=== PATIENT | female | born 1965 | race Caucasian/White ===

== ENCOUNTER → 2020-10-28 | Outpatient (CLI) | payer MEDICARE, OTHER ==
--- NOTE | 2020-10-29 19:00 | CT ---
EXAMINATION TYPE: CT lumbar spine wo con DATE OF EXAM: 10/28/2020 5:08 PM COMPARISON: HISTORY: low back pain CT DLP: 601 mGycm Automated exposure control for dose reduction was used. Unenhanced CT of the lumbar spine was performed. Bone and soft tissue window settings are submitted as well as coronal and sagittal reconstructions. There is a 2 mm nonobstructing right renal calculus. Atherosclerotic change of the aorta. L1-L2: Normal disc space height. No disc herniation protrusion or central stenosis. No facet joint arthropathy. No evidence for foraminal encroachment. L2-L3: Normal disc space height. No disc herniation protrusion or central stenosis. No facet joint arthropathy. No evidence for foraminal encroachment. L3-L4: Normal disc space height. No disc herniation protrusion or central stenosis. No facet joint arthropathy. No evidence for foraminal encroachment. L4-L5: Circumferential disc bulging. There is hypertrophic change of the facets and ligamentum flavum . No disc herniation or canal stenosis. No foraminal encroachment. L5-S1: There is a vacuum disc with posterior spondylosis and severe degenerative disc disease. Facet arthropathy noted there is spurring posteriorly with mild left foraminal encroachment. Central disc b ulging with mild effacement of thecal sac but no definite focal herniation by noncontrast CT scan. IMPRESSION: 1. Severe degenerative disc disease with vacuum disc and facet arthropathy L5-S1. Mild left foraminal encroachment. 2. Nonobstructing 2 mm right renal calculus. 3. Circumferential disc bulging L4-L5 but no canal stenosis or foraminal encroachment. Hypertrophic c hange of the facets noted.
== END | disposition home or self-care (01) ==
LOC: RADCTMAIN 16:34
PROVIDERS: ATTEND Physical Medicine & Rehabilitation
DX: M51.36 Other intervertebral disc degeneration, lumbar region (principal); M51.26 Other intervertebral disc displacement, lumbar region; M47.817 Spondylosis without myelopathy or radiculopathy, lumbosacral region; M99.73 Connective tissue and disc stenosis of intervertebral foramina of lumbar region; N20.0 Calculus of kidney
CPT/HCPCS: 72131

== ENCOUNTER → 2021-10-26 | Outpatient (CLI) | payer MEDICARE, OTHER ==
--- NOTE | 2021-10-26 22:20 | BD ---
EXAMINATION TYPE: Axial Bone Density DATE OF EXAM: 10/26/2021 COMPARISON: NONE CLINICAL HISTORY: 56 years year old Female. ICD-10 CODE: M85.88 OTHER DISORDER OF BONE DENSITY Height: 61.25 Weight: 157.7 FRAX RISK QUESTIONS: Alcohol (3 or more units per day): NO Family History (Parent hip fracture): NO Glucocorticoids (More than 3mos): NO (History of Fracture in Adulthood: NO Secondary Osteoporosis: 1. Type 1 Diabetes: NO 2. Hyperthyroidism: NO 3. Menopause before 45: AGE 36 4. Malnutrition: NO 5. Chronic liver disease: NO Rheumatoid Arthritis: NO Current Tobacco Use: NO RISK FACTORS HISTORY OF: Hip Fracture (Right/Left): NO Spine Fracture: NO History of Wrist Fracture: NO Surgery to Spine/Hip(right/left)/Wrist (right/left): NO Family History of Osteoporosis: NO Active: NO Diet low in dairy products/other sources of calcium: YES Take estrogen and/or progesterone medications: ESTRADIOL How lon YEARS Lost more than 2 inches in height since high school: NO Frequent falls: YES Poor Health: NO Hyperparathyroidism: NO Adrenal Insufficiency: NO MEDICATIONS: Prednisone or other steroids: NO Thyroid Medications:NO Osteoporosis Medications: NO Additional Medications: ESTRADIOL, SERTRALINE, MELOXICAM, CHOLESTEROL MEDS, OMEPRAZOLE Additional History: EXAM MEASUREMENTS: Bone mineral densitometry was performed using the [employer] System. Bone mineral density as measured about the Lumbar spine is: ----- L1-L4(G/cm2): 1.121 T Score Values are as follows: ----- L1: -0.8 ----- L2: -0.4 ----- L3: -0.3 ----- L4: -0.7 ----- L1-L4: -0.5 BASELINE STUDY Bone mineral density about the R hip (g/cm2): 0.838 Bone mineral density about the L hip (g/cm2): 0.779 T Score values are as follows: -----R Neck: -1.4 -----L Neck: -1.9 -----R Total: -0.6 -----L Total: -1.0 BASELINE STUDY FRAX%s: The graph provided illustrates a 7.5% chance for a major osteoporotic fx and a 0.8% chance fo r the hips probability for fx in 10 years time. IMPRESSION: Osteopenia (T Score between -2.5 and -1). There is slightly increased risk of fracture and the patient may be considered for treatment. Re-Screen 2-5 years. NOTE: T-SCORE=SD OF THE YOUNG ADULT MEAN.
== END | disposition home or self-care (01) ==
LOC: RADBDWWP 15:45
PROVIDERS: ATTEND Obstetrics & Gynecology
DX: Z12.31 Encounter for screening mammogram for malignant neoplasm of breast (principal); M85.80 Other specified disorders of bone density and structure, unspecified site
CPT/HCPCS: 77063; 77067; 77080

== ENCOUNTER → 2022-09-17 | Outpatient (CLI) | payer MEDICARE, OTHER ==
--- NOTE | 2022-09-17 08:22 | CT ---
EXAMINATION TYPE: CT lumbar spine wo con DATE OF EXAM: 09/17/2022 COMPARISON: 10/28/2020 HISTORY: 57-year-old female G439.9 R42 R51.9 M54.50 M47.816, Low back pain, no injury. TECHNIQUE: Contiguous axial scanning of the lumbar spine without IV contrast. Coronal and sagittal re constructions performed. CT DLP: 1030 mGycm Automated exposure control for dose reduction was used. FINDINGS: 4 mm nonobstructive right renal calculus. Vertebral body heights are preserved and alignment is maintained. Moderate degenerative disc disease at L5-S1 with narrowed, desiccated, diffusely bulging disc. There appears to be a possible new left paracentral disc protrusion which may abut the traversing lef t S1 nerve root at this level. There is impression on the ventral thecal sac without significant spin al canal stenosis. Hypertrophic facet arthropathy mid to lower lumbar spine. On the left, this contributes to moderate neural foraminal stenosis at L5-S1 and mild at L3-L4 L4-L5. On the right, changes result in [id number] foraminal stenosis at L4-L5 and L5-S1. Additional levels of mild degenerative disc disease with mild posterior disc bulging. No additional l arge focal disc herniation or significant spinal canal stenosis. IMPRESSION: 1. MILD MULTILEVEL DEGENERATIVE DISC DISEASE, THOUGH, MODERATE AT L5-S1. THERE MAY BE A NEW LEFT PARA CENTRAL DISC HERNIATION AT THIS LEVEL THAT MAY ABUT THE TRAVERSING LEFT S1 NERVE ROOT. CORRELATE FOR ANY RADICULAR SYMPTOMS. 2. OTHERWISE, THERE IS MILD DISC BULGING AT MULTIPLE LEVELS WITHOUT SIGNIFICANT SPINAL CANAL STENOSIS . 3. VARIABLE [id number] NEUROFORAMINAL STENOSES OUTLINED ABOVE.
--- NOTE | 2022-09-17 08:54 | CT ---
EXAMINATION TYPE: CT brain wo con, CT facial bones wo con DATE OF EXAM: 09/17/2022 COMPARISON: None HISTORY: 57-year-old female G439.9 R42 R51.9 M54.50 M47.816, Sinus pressure and headaches. TECHNIQUE: CT of the brain without contrast. Subsequent scanning of the facial bones without contrast . Coronal and sagittal reconstructions performed. CT DLP: 1129.1 (accession [id number]), 837.2 (accession [id number]) mGycm Automated exposure control for dose reduction was used. FINDINGS: Brain: Slight asymmetric prominence to the right lateral ventricle likely congenital variation. There is pro minent streak and beam hardening artifact relating to the electronic device overlying the patient's r ight parietal convexity. Lead extending to the region of right mastoid resection. Trace fluid is pres ent within some residual inferior most mastoid air cells. The middle ear cavities are clear. Incident al petrous apex pneumatization. Allowing for the exam limitations, there is no evidence of acute intracranial hemorrhage, acute isch emic changes, mass, mass-effect, or extra-axial fluid collection. There is no effacement of cerebral sulci or basal subarachnoid cisterns. There is no hydrocephalus. There is no midline shift. Branch- white matter distinction is preserved. FACIAL BONES: Rightward nasal septal deviation. Trace mucosal thickening scattered within the maxillary sinuses. Th e osteomeatal complexes are patent. No air-fluid levels. Orbits and globes are intact. Asymmetric deg enerative change right TMJ. IMPRESSION: BRAIN: 1. Metal artifact from electronic device located along the right parietal convexity. Allowing for thi s limitation, no acute intracranial abnormality seen. 2. Previous resection into the right mastoid air cells. There is minimal fluid trapped within some re sidual inferior most right mastoid air cells. Correlate for any mastoid pain to exclude mastoiditis. FACIAL BONES: 3. Rightward nasal septal deviation. 4. Trace mucosal thickening throughout the ethmoid air cells. 5. Asymmetric right TMJ OA.
== END | disposition home or self-care (01) ==
LOC: RADCTMAIN 06:37
PROVIDERS: ATTEND Psychiatry & Neurology Neurology
DX: G43.909 Migraine, unspecified, not intractable, without status migrainosus (principal); M47.816 Spondylosis without myelopathy or radiculopathy, lumbar region; M51.37 Other intervertebral disc degeneration, lumbosacral region; M99.73 Connective tissue and disc stenosis of intervertebral foramina of lumbar region; R42 Dizziness and giddiness
CPT/HCPCS: 70450; 70486; 72131

== ENCOUNTER → 2022-11-23 | Outpatient (CLI) | payer MEDICARE, OTHER ==
--- NOTE | 2022-11-27 08:35 | MM ---
Reason for Exam: Screening (asymptomatic). Last mammogram was performed 1 year(s) and 1 month(s) ago. Patient History: Menarche at age 12. Patient has no children. Left ovary removed at age 43. Right ovary removed at age 36. Hysterectomy at age 36. Postmenopausal. Currently using Estrogen, starting at age 36. Maternal grandmother had breast cancer. Risk Values: Fely 5 year model risk: 1.5%. NCI Lifetime model risk: 9.7%. Prior Study Comparison: 11/12/2017 Screening Mamm[facility], [facility]. 11/13/2018 Screening Mammogram, [facility]. 10/26/2021 Bilateral Screening Mammogram, [facility]. Tissue Density: The breast tissue is heterogeneously dense. This may lower the sensitivity of mammography. Findings: Analyzed By CAD. There is no suspicious group of microcalcifications or new suspicious mass in either breast. Overall Assessment: Benign, BI-RAD 2 Management: Screening Mammogram of both breasts in 1 year. . Patient should continue monthly self-breast exams. A clinical breast exam by your physician is recommended on an annual basis. This exam should not preclude additional follow-up of suspicious palpable abnormalities. Note on Fely scores and lifetime risk: 1. A Fely score greater than 3% is considered moderate risk. If this is the case, consider specialist referral to assess eligibility for a risk reducing agent. 2. If overall lifetime risk for the development of breast cancer is 20% or higher, the patient may qualify for future screening with alternating mammogram and breast MRI. Electronically signed and approved by: Willie Briceno M.D. Radiologis
== END | disposition home or self-care (01) ==
LOC: RADMAMWWP 13:30
PROVIDERS: ATTEND Obstetrics & Gynecology
DX: Z12.31 Encounter for screening mammogram for malignant neoplasm of breast (principal); Z78.0 Asymptomatic menopausal state; Z80.3 Family history of malignant neoplasm of breast
CPT/HCPCS: 77063; 77067

== ENCOUNTER 2023-11-05 12:35 | Day surgery (SDC) | payer MEDICARE, OTHER ==
[2023-11-04 09:02] VITALS: BMI 27.4
[2023-11-05] MEDS: LACTATED RINGERS 1,000 ML IV SCH (13:18)
[2023-11-05] MEDS ORDERED: PROPOFOL 10 MG/ML 20 ML VIAL IV ONE (13:23)
--- NOTE | 2023-11-05 13:28 | P.GSHP ---
History of Present Illness H&P Date: 11/05/23 Chief Complaint: Colon cancer screening 58-year-old female here for colonoscopy. She has had colonoscopies previously. States she has diverticulosis. No history of polyps. Past Medical History Past Medical History: GERD/Reflux, Hearing Disorder / Deafness, Hyperlipidemia Additional Past Medical History / Comment(s): cochlear implants , heart murmur , blind left eye, degenerative disc disease History of Any Multi-Drug Resistant Organisms: None Reported Past Surgical History: Hysterectomy Additional Past Surgical History / Comment(s): cochlear implants, egd, colonoscopy Past Anesthesia/Blood Transfusion Reactions: No Reported Reaction Past Psychological History: No Psychological Hx Reported Additional Psychological History / Comment(s): no blood transfusion Smoking Status: Never smoker Past Alcohol Use History: None Reported Past Drug Use History: Marijuana Additional Drug Use History / Comment(s): edibles occasional. know s to not have one prior to procedure Medications and Allergies Home Medications Medication Instructions Recorded Confirmed Type Calcium Carbonate/Vitamin D3 1 each PO DAILY 11/04/23 11/04/23 History [Calcium 500-Vit D3 15 Mcg (600 Iu)] Cetirizine HCl [Zyrtec] 10 mg PO DAILY 11/04/23 11/04/23 History Dicyclomine [Bentyl] 20 mg PO HS 11/04/23 11/04/23 History Meloxicam [Mobic] 15 mg PO DAILY 11/04/23 11/04/23 History Omeprazole [PriLOSEC] 20 mg PO AC-BID 11/04/23 11/04/23 History Ondansetron [Zofran] 4 mg PO Q8HR PRN 11/04/23 11/04/23 History Pseudoephedrine [Sudafed] 30 mg PO Q6H 11/04/23 11/04/23 History Rosuvastatin [Crestor] 5 mg PO DAILY 11/04/23 11/04/23 History Sertraline [Zoloft] 100 mg PO DAILY 11/04/23 11/04/23 History estradioL [estradioL (Once Weekly) 1 patch TRANSDERM WEEKLY 11/04/23 11/04/23 History 0.025 mg Patch] traZODone HCL [Desyrel] 50 mg PO HS 11/04/23 11/04/23 History Allergies Allergy/AdvReac Type Severity Reaction Status Date / Time sulfamethoxazole Allergy Nausea & Verified 11/04/23 08:40 [From Bactrim] Vomiting & Diarrhea trimethoprim [From Bactrim] Allergy Nausea & Verified 11/04/23 08:40 Vomiting & Diarrhea cephalexin [From Keflex] AdvReac Rash/Hives Verified 11/04/23 08:40 Surgical - Exam Vital Signs Temp Pulse Resp BP Pulse Ox 97.2 F L 83 20 143/78 98 11/05/23 13:03 11/05/23 13:03 11/05/23 13:03 11/05/23 13:03 11/05/23 13:03 Physical exam: General: Well-developed, well-nourished HEENT: Normocephalic, sclerae nonicteric Abdomen: Nontender, nondistended Extremities: No edema Neuro: Alert and oriented Assessment and Plan (1) Colon cancer screening Narrative/Plan: Will proceed with colonoscopy at this time. Current Visit: Yes Status: Acute Code(s): Z12.11 - ENCOUNTER FOR SCREENING FOR MALIGNANT NEOPLASM OF COLON SNOMED Code(s): 610423545
--- NOTE | 2023-11-05 13:38 | P.PCN ---
Date of Procedure: 11/05/23 Procedure(s) Performed: PREOPERATIVE DIAGNOSIS: Colon cancer screening POSTOPERATIVE DIAGNOSIS: Diverticulosis PROCEDURE: Colonoscopy ANESTHESIA: MAC SURGEON: Maikel Arzola M.D. SPECIMENS: None ENDOSCOPIC PROCEDURE: The patient was placed on the endoscopy table in the left decubitus position. The Olympus colonoscope was inserted into the anus and passed under direct visualization to the base of the cecum. The appendiceal orifice was visualized. From that point the scope was slowly withdrawn inspe cting all surfaces carefully. There were no neoplastic inflammatory or polypoid lesions throughout the cecum, ascending, transverse, descending, sigmoid and rectum. There was mild scattered left-sided diverticulosis noted. Digital rectal examination was normal. The patient was taken to the recovery room in stable condition per anesthesia guidelines. RECOMMENDATIONS: Resume diet. Repeat colonoscopy 7 to 10 years.
[2023-11-05 13:41] VITALS: TEMP 97.2
[2023-11-05 13:42] VITALS: RESP 16
[2023-11-05 14:28] VITALS: BP 122/81; PULSE 70
== END 2023-11-05 14:22 | disposition home or self-care (01) ==
LOC: ORWHC2ENDO 12:35
PROVIDERS: ATTEND Surgery
DX: Z12.11 Encounter for screening for malignant neoplasm of colon (principal); K57.30 Diverticulosis of large intestine without perforation or abscess without bleeding; K21.9 Gastro-esophageal reflux disease without esophagitis; E78.5 Hyperlipidemia, unspecified; F12.90 Cannabis use, unspecified, uncomplicated; Z90.710 Acquired absence of both cervix and uterus; Z98.890 Other specified postprocedural states; Z79.899 Other long term (current) drug therapy; Z79.1 Long term (current) use of non-steroidal anti-inflammatories (NSAID); Z88.2 Allergy status to sulfonamides; Z88.1 Allergy status to other antibiotic agents
CPT/HCPCS: J2704; G0121; 45378

== ENCOUNTER → 2024-03-27 | Outpatient (CLI) | payer MEDICARE, OTHER ==
--- NOTE | 2024-03-30 12:50 | MM ---
Reason for Exam: Screening (asymptomatic). Last mammogram was performed 1 year(s) and 4 month(s) ago. Patient History: Menarche at age 12. Patient has no children. Left ovary removed at age 43. Right ovary removed at age 36. Hysterectomy at age 36. Postmenopausal. Currently using Estrogen, starting at age 36. Maternal grandmother had breast cancer. Risk Values: Fely 5 year model risk: 1.6%. NCI Lifetime model risk: 9.3%. Prior Study Comparison: 11/13/2018 Screening Mammogram, [facility]. 10/26/2021 Bilateral Screening Mammogram, [facility]. 11/23/2022 Bilateral MG 3D screening mammo w/cad, [facility]. Tissue Density: The breasts are heterogeneously dense, which may obscure small masses. Findings: Analyzed By CAD. There is no suspicious group of microcalcifications or new suspicious mass in either breast. Overall Assessment: Negative, BI-RAD 1 Management: Screening Mammogram of both breasts in 1 year. . Patient should continue monthly self-breast exams. A clinical breast exam by your physician is recommended on an annual basis. This exam should not preclude additional follow-up of suspicious palpable abnormalities. Note on Fely scores and lifetime risk: 1. A Fely score greater than 3% is considered moderate risk. If this is the case, consider specialist referral to assess eligibility for a risk reducing agent. 2. If overall lifetime risk for the development of breast cancer is 20% or higher, the patient may qualify for future screening with alternating mammogram and breast MRI. [facility], , 03/30/2024 12:47 PM. Electronically signed and approved by: Willie Briceno M.D. Radiologis
== END | disposition home or self-care (01) ==
LOC: RADMAMWWP 15:16
PROVIDERS: ATTEND Obstetrics & Gynecology
CPT/HCPCS: 77063; 77067

== ENCOUNTER → 2024-04-17 | Outpatient (CLI) | payer MEDICARE, OTHER ==
--- NOTE | 2024-04-17 11:06 | CT ---
EXAMINATION TYPE: CT brain wo/w con DATE OF EXAM: 04/17/2024 COMPARISON: December 28, 2022 HISTORY: headaches, right ear pain CT DLP: 2327 mGycm Automated exposure control for dose reduction was used. CONTRAST: CT scan of the head is performed without and with IV Contrast, patient injected with 100 mL of Isovue 370. Findings: Metallic artifact from the electronic device overlying the right parietal region somewhat limits the evaluation. The ventricles, basal cisterns and sulci over convexities are within normal limits for the patient's age. There is no mass effect or shift of the midline structures. No abnormal density is seen througho ut the brain parenchyma. There is no pathological enhancement. The posterior fossa is grossly normal. Intraorbital contents are normal in symmetric. Visualized paranasal sinuses and mastoid air cells are well aerated. IMPRESSION: No acute bleed or mass effect or pathological enhancement. No significant interval change. [facility], , 04/17/2024 11:03 AM
== END | disposition home or self-care (01) ==
LOC: RADCTMAIN 09:58
PROVIDERS: ATTEND Psychiatry & Neurology Neurology
CPT/HCPCS: 70470